=== PATIENT | male | born 1965 | race Caucasian/White ===

== ENCOUNTER 2020-10-04 09:59 | Outpatient (CLI) | payer SELFPAY ==
--- NOTE | 2020-10-04 10:15 | CT_ITS ---
WS: [id number] CT TEMPORAL BONES TECHNIQUE: Noncontrast CT of the temporal bones with coronal and sagittal reformatted images. CLINICAL INFORMATION: CHRONIC OTITIS MEDIA WITH PERFORATED TYMPANIC MEMBRANE COMPARISON: None. DLP: 826.[address] scans at [facility] use at least one of these dose optimization techniques: automat ed exposure control; mA and/or kV adjustment per patient size (includes targeted exams where dose is matched to clinical indication); or iterative reconstruction. FINDINGS: Chronic appearing opacification mastoid air cells bilaterally. Sclerosis in the mastoid bon es bilaterally. Mild chronic appearing mucosal thickening in the middle ear right greater than left w ith thickening of the tympanic membranes right greater than left. Mild mucosal thickening ethmoid air cells. Circumferential mucosal thickening left maxillary sinus. N ormal posterior nasopharynx. RIGHT: Opacification of the right mastoid air cells. Chronic appearing opacification the right middle ear. O therwise normal inner ear structures. Normal scutum. Thickening of the tympanic membrane. Normal external auditory canal. Normal tegmen tympani. Semicircular canals and cochlea are normal in appearance. Normal inner ear structures. Normal vestibular aqueduct. Facial nerve recess is normal. LEFT: Opacification of the left mastoid air cells. Chronic appearing opacification left middle ear. Otherwi se normal inner ear structures. Normal scutum. Thickening of the tympanic membrane. Normal external auditory canal. Normal tegmen tympani. Semicircular canals and cochlea are normal in appearance. Normal inner ear structures. Normal vestibular aqueduct. Facial nerve recess is normal. Visualized intracranial contents and posterior fossa are normal. CT/CT temporal bone wo con* [id number] IMPRESSION: 1. Chronic appearing opacification mastoid air cells bilaterally with chronic erosion of the mastoid septae and bony sclerosis consistent with chronic mastoi ditis. 2. Normal scutum. 3. Chronic appearing mucosal thickening in the middle ear bilaterally right gr eater than left. Thickening of the tympanic membrane. 4. Inner ear structures otherwise appear normal. 5. Moderate mucosal thickening left maxillary sinus.
== END 2020-10-04 10:00 | disposition home or self-care (01) ==
PROVIDERS: Visit Provider Otolaryngology
DX: H66.93 Otitis media, unspecified, bilateral (principal); H72.93 Unspecified perforation of tympanic membrane, bilateral
CPT/HCPCS: 70480

== ENCOUNTER → 2021-06-30 10:02 | Outpatient (BNVA) | payer OTHER, SELFPAY | PROVIDERS: Visit Provider Nurse Practitioner Family | DX: Z20.822 Contact with and (suspected) exposure to COVID-19 (principal) | CPT/HCPCS: 87635 ==

== ENCOUNTER 2021-09-11 14:48 | Emergency (ER) | payer SELFPAY ==
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
--- NOTE | 2021-09-11 14:54 | ECG_ITS ---
[facility] Test Date: 2021-09-11 Pat Name: Steve Heredia Department: Room: Gender: Male Kennel Hand: : 1965 Requested By: Keo Urias Order Number: [id number] Carreno MD: Bessy Adams M.D. Measurements Intervals [place] Rate: 68 P: 65 MA: 154 QRS: 11 QRSD: 98 T: 155 QT: 433 QTc: 462 Interpretive Statements SINUS RHYTHM MARKED T-WAVE ABNORMALITY, CONSIDER ANTEROLATERAL ISCHEMIA [-0.5+ mV T-WAVE IN I/aVL/V3-V6] No previous ECG available for comparison Electronically Signed On 09-12-2021 17:39:37 CDT by Bessy Adams M.D. [id number]
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
[2021-09-11 14:57] VITALS: BP 122/75; PULSE 74; RESP 16; TEMP 36.4; O2SAT 99; BMI 22.3
[2021-09-11 15:09] LABS: Basophils # 0.1 10^3/uL (0.0-0.1); Basophils % 1.3 %; Eosinophils % 0.2 %; Hematocrit 47.1 % (42.0-52.0); Hemoglobin 16.2 g/dL (11.7-16.6); Lymphocytes # 1.5 10^3/uL (0.8-4.8); Lymphocytes % 28.4 %; Mean Corpuscular HGB Conc 34.4 g/dL (30.0-36.0); Mean Corpuscular Hemoglobin 32.7 pg (28.0-34.0); Mean Corpuscular Volume 95.2 fl (80-94); Mean Platelet Volume 11.8 fL (7.4-10.4); Monocytes # 0.5 10^3/uL (0.2-0.9); Monocytes % 10.1 %; Neutrophils # 3.21 10^3/uL (1.8-7.7); Neutrophils % 59.8 %; Nucleated Red Blood Cells % 0 %; Platelet Count 248 10^3/cmm (130-400); Red Blood Count 4.95 10^6/uL (4.1-5.3); Red Cell Distribution Width 13.1 % (12.1-15.1); White Blood Count 5.4 10^3/uL (4.0-10.0)
[2021-09-11] MEDS: aspirin 81 mg Chew Tablet 324 MG PO (15:12)
[2021-09-11] MEDS: tetanus-diphtheria tox (adult) 0.5 mL SDV IM (15:13)
[2021-09-11 15:28] LABS: Troponin(5th) Baseline 9 ng/L (0-15)
[2021-09-11 15:29] LABS: Alanine Aminotransferase 10 U/L (0-41); Albumin Level 4.6 g/dL (3.5-5.2); Alkaline Phosphatase 66 IU/L (40-130); Anion Gap 19.4 (5-19); Aspartate Amino Transferase 14 U/L (0-40); Blood Urea Nitrogen 10 mg/dL (6-20); Carbon Dioxide 19 mmol/L (22-29); Chloride 109 mmol/L (98-107); Globulin 2.8 g/dL (1.3-4.6); Glomerular Filtration Rate 117.1 mL/min (90-130); Glucose 100 mg/dL (65-115); Lipase 37 U/L (13-60); Osmolality Calculated 297 mOsm/kg (285-295); Potassium 3.4 mmol/L (3.5-5.1); Sodium 144 mmol/L (136-145); Total Bilirubin 0.4 mg/dL (0.15-1.2); Total Protein 7.4 g/dL (6.6-8.7)
--- NOTE | 2021-09-11 16:54 | ECG_ITS ---
[facility] Test Date: 2021-09-11 Pat Name: Steve Heredia Department: Room: Gender: Male Manager Hardware: : 1965 Requested By: Keo Urias Order Number: [id number] vE MD: Bessy Adams M.D. Measurements Intervals [place] Rate: 74 P: 73 GA: 152 QRS: 38 QRSD: 96 T: 192 QT: 421 QTc: 468 Interpretive Statements SINUS RHYTHM MODERATE T-WAVE ABNORMALITY, CONSIDER ANTEROLATERAL ISCHEMIA [-0.1+ mV T-WAVE IN V3-V6] MODERATE T-WAVE ABNORMALITY, CONSIDER INFERIOR ISCHEMIA [-0.1+ mV T-WAVE IN II/aVF] Compared to ECG 09/11/2021 15:03:34 No significant changes Electronically Signed On 09-12-2021 17:43:55 CDT by Bessy Adams M.D. [id number]
[2021-09-11 17:19] LABS: Troponin 5 2HR 8.06 ng/L (0-15)
[2021-09-11 17:57] VITALS: O2SAT 95; O2SAT 98
[2021-09-11 18:10] LABS: Troponin 5 2HR Delta -0.94 ABS# (0-10)
== END 2021-09-11 18:08 | disposition home or self-care (01) ==
PROVIDERS: Emergency Provider Emergency Medicine
DX: R07.9 Chest pain, unspecified (principal); S40.812A Abrasion of left upper arm, initial encounter; Y35.93XA Legal intervention, means unspecified, suspect injured, initial encounter; Z23 Encounter for immunization
CPT/HCPCS: 71045; 80053; 83690; 84484; 85025; 90471; 90714; 93005; 99284

== ENCOUNTER 2024-04-12 06:17 | Emergency (ER) | payer MEDICAID, SELFPAY ==
[2024-04-12 06:22] VITALS: BP 114/68; PULSE 87; RESP 24; TEMP 36.2; O2SAT 98; BMI 22.3
--- NOTE | 2024-04-12 06:32 | XRR_ITS ---
PROCEDURE INFORMATION: Exam: XR Lumbosacral Spine Exam date and time: 04/12/2024 6:55 AM Age: 58 years old Clinical indication: Low back pain TECHNIQUE: Imaging protocol: Radiologic exam of the lumbosacral spine. Views: 2 or 3 views. COMPARISON: No relevant prior studies available. FINDINGS: Limitations: Lateral views degraded by artifact, motion, unsharpness. Bones/joints: Curvature/rotation lumbar spine. Evidence of compression fracture superior endplate with [id number] partial loss of vertebral body height L1 vertebral body, of uncertain age. No additional new appearing displaced fracture nor dislocation seen. Relatively narrow disc space L5-S1, nonspecific. Hypertrophic endplate changes. Degenerative changes facets. Arthritic changes hips. Soft tissues: Unremarkable. Vasculature: Pelvic phleboliths. XR/XR lumbar spine 2-3V* [id number] IMPRESSION: 1. Compression fracture L1 vertebral body, of uncertain age. 2. Degenerative changes.
--- NOTE | 2024-04-12 06:33 | ED_ITS ---
HPI - Back Pain/Injury General: Chief Complaint: Back Pain/Injury Stated Complaint: low back pain Time Seen by Provider: 04/12/24 06:19 Source: patient Mode of arrival: ambulatory Limitations: no limitations History of Present Illness: 58-year-old male has a history of chroni c low back pain states has had low back pain for years. States that pain in his low back is worse with movement and touch. States if he bends down or bends over the pain is much worse as well. He denies any acute injuries denies any acute worsening of his pain. He denies any bowel or bladder incontinence Associated symptoms: Deny abdominal pain, chills, fever(s), nausea or vomiting Related Data Previous Rx's Medication Instructions Recorded methocarbamol 750 mg tablet 750 mg PO Q6H PRN spasms #20 tabs 04/12/24 naproxen 500 mg tablet (Naprosyn) 500 mg PO BID PRN pain #20 tabs 04/12/24 Allergies Allergy/AdvReac Type Severity Reaction Status Date / Time No Known Allergies Allergy Verified 04/12/24 06:22 Review of Systems Const: Denies: fever(s), chills, body aches or change in appetite ENMT: Denies: throat pain or dental pain Card: Denies: chest pain Resp: Denies: dyspnea GI: Denies: abdominal pain, nausea, vomiting or diarrhea Musc: Reports: back pain; Denies: neck pain Skin/Breast: Denies: rash Neuro: Denies: headache(s) PFSH ED PFSH: Family History Mother Diabetes Social History Alcohol intake: current Alcohol intake frequency: 3 or more drinks per day Alcohol type: beer Physical Exam Const: COMMON NORMALS: no acute distress, patient oriented x3 and healthy appearing HENMT: COMMON NORMALS: normocephalic and atraumatic HEAD & SCALP: normocephalic and atraumatic Neck/C-Spine: COMMON NORMALS: full ROM and supple Chest: COMMONS NORMALS: normal inspection of the chest Resp: COMMON NORMALS: normal respiratory effort Cardio: COMMON NORMALS: regular rate RATE: regular rate Back/Pelvis: OTHER: Paraspinal tenderness to low back no saddle anesthesia Extremity: COMMON NORMALS: normal to inspection and full ROM Neuro: COMMON NORMALS: patient oriented x3, moves all extremities and no focal motor deficits Psych: COMMON NORMALS: mental status grossly normal, Normal thought process present and cooperative THOUGHT PROCESS: Normal thought process present Skin: COMMON NORMALS: no rashes or lesions noted and no wounds GENERAL SKIN EXAM: no rashes or lesions noted Course Vital Signs: Vital signs: Vital Signs Temperature 97.1 F L 04/12/24 06:22 Pulse Rate 87 04/12/24 06:22 Respiratory Rate 24 H 04/12/24 06:22 Blood Pressure 114/68 04/12/24 06:22 Pulse Oximetry 98 04/12/24 06:22 MDM - Back Pain/Injury Medical Decision Making Patient presents with low back pain he has no signs of epidural abscess or cord compression. Will place him on Naprosyn Robaxin he stable for discharge follow- up with PCP return if worsening. Medical Records I reviewed the patient's medical records. XR interpretation done by ED provider, pending radiology final review ED provider radiology interpretation(s): X-ray lumbar spine no acute abnormality Discharge Plan Discharge Patient Disposition: Home Clinical Impression: Chronic low back pain Condition: Stable Prescriptions: New methocarbamol 750 mg tablet 750 mg PO Q6H PRN (Reason: spasms) Qty: 20 0RF naproxen [Naprosyn] 500 mg tablet 500 mg PO BID PRN (Reason: pain) Qty: 20 0RF Discharge Orders: Discharge ED (Routine); Ordered 04/12/24 Ordered By: Lillian Winter Discharge Diet: Advance as tolerated Discharge Activity: Resume usual activity Patient Instructions: Chronic Back Pain (DC) Coding Level of Care Code ED Chemical Engineer for Wilson Bowles
[2024-04-12] MEDS: methocarbamol 750 mg Tablet 1500 MG PO (06:38)
[2024-04-12] MEDS: ketorolac 60 mg/2 mL INJ IM (06:40)
[2024-04-12] MEDS: dexamethasone 10 mg/mL INJ IM (06:40)
--- NOTE | 2024-04-14 07:36 | DCPLANNER ---
messaged ortho for er f/u
== END 2024-04-12 07:30 | disposition home or self-care (01) ==
PROVIDERS: Emergency Provider Emergency Medicine
DX: M54.50 Low back pain, unspecified (principal)
CPT/HCPCS: 72100; 96372; 99284; J1100; J1885

== ENCOUNTER → 2024-04-22 07:58 | Outpatient (BNVA) | payer MEDICAID, SELFPAY | PROVIDERS: Visit Provider Orthopaedic Surgery | DX: M54.50 Low back pain, unspecified (principal); G89.29 Other chronic pain; M48.062 Spinal stenosis, lumbar region with neurogenic claudication | CPT/HCPCS: 72110 ==

== ENCOUNTER 2024-05-28 15:09 | Outpatient (RCR) | payer OTHER, MEDICAID, SELFPAY | END 2024-05-30 23:59 | disposition home or self-care (01) | LOC: SPT 15:09 | PROVIDERS: Visit Provider Orthopaedic Surgery | DX: M54.50 Low back pain, unspecified (principal); G89.29 Other chronic pain | CPT/HCPCS: 97161 ==

== ENCOUNTER 2024-05-31 06:30 | Outpatient (RCR) | payer OTHER, MEDICAID, SELFPAY | END 2024-06-27 23:59 | disposition home or self-care (01) | LOC: SPT 06:30 | PROVIDERS: Visit Provider Orthopaedic Surgery | DX: M54.50 Low back pain, unspecified (principal); G89.29 Other chronic pain | CPT/HCPCS: 97110 ==

== ENCOUNTER 2024-10-31 19:21 | Emergency (ER) | payer MEDICAID, SELFPAY ==
[2024-10-31 19:45] VITALS: BP 111/69; PULSE 77; RESP 14; TEMP 36.6; O2SAT 97
[2024-10-31 20:50] VITALS: BP 95/48; PULSE 76; O2SAT 95
[2024-10-31] MEDS: HYDROcodone-acetaminophen 5-325 mg Tablet 1 TAB PO (21:20)
[2024-10-31] MEDS: orphenadrine 30 mg/mL Inj 2 mL 60 MG IM (21:22)
--- NOTE | 2024-10-31 21:36 | W.ED.BACK ---
HPI - Back Pain/Injury General: Chief Complaint: Back Pain/Injury Stated Complaint: Back pain fall Time Seen by Provider: 10/31/24 21:05 History of Present Illness: Patient with chronic low back pain. Has seen neurosurgery for in the past. Has done rehab in [facility] to get an MRI scheduled through his insurance. He states that he was just walking today and he felt his low back started to hurt and gave out on him so he went to the ground. He did not fall or have any injury from this. He states that this pain is in the low back and across the left lower side. He denies any bowel or bladder changes. Denies any radicular pain. Related Data Previous Rx's ?Medication ?Instructions ?Recorded methocarbamol 750 mg tablet 750 mg PO Q6H PRN spasms #20 tabs 04/12/24 naproxen 500 mg tablet (Naprosyn) 500 mg PO BID PRN pain #20 tabs 04/12/24 prednisone 20 mg tablet 20 mg PO DAILY #15 tabs 05/15/24 cyclobenzaprine 10 mg tablet 10 mg PO TID #20 tabs 10/31/24 hydrocodone 5 mg-acetaminophen 325 1 tab PO Q6H #20 tabs 10/31/24 mg tablet Allergies Allergy/AdvReac Type Severity Reaction Status Date / Time No Known Allergies Allergy Verified 04/12/24 06:22 [facility] ED PFSH: Family History Mother Diabetes Social History Smoking and tobacco/nicotine status: current every day tobacco/nicotine user cigarettes Packs smoked per day: 1 Years cigarettes smoked: 35 Alcohol intake: current Alcohol intake frequency: 3 or more drinks per day Alcohol type: beer Physical Exam Const: COMMON NORMALS: patient oriented x3 Neck/C-Spine: COMMON NORMALS: no JVD Resp: COMMON NORMALS: normal respiratory effort, No retractions, No use of accessory muscles, clear to auscultation bilaterally and percussion normal AUSCULTATION: clear to auscultation bilaterally PERCUSSION: percussion normal Cardio: COMMON NORMALS: no JVD, regular rate, regular rhythm, S1 normal heart sound present, S2 normal heart sound present, No gallops present (Cardio), No clicks present (Cardio), No murmurs present (Cardio), No rub (Cardio) and Peripheral pulses 2+ throughout RATE: regular rate RHYTHM: regular rhythm HEART SOUNDS: S1 normal heart sound present and S2 normal heart sound present PERIPHERAL PULSES: Peripheral pulses 2+ throughout GI: COMMON NORMALS: Normal to inspection, nondistended, normoactive bowel sounds present, Soft to palpation, non-tender, No hepatosplenomegaly present, no masses and no bruits PALPATION: Yes Soft to palpation and Yes No hepatosplenomegaly present Back/Pelvis: OTHER: Diffuse low back pain, negative straight leg raise bilaterally Neuro: COMMON NORMALS: patient oriented x3, moves all extremities, no focal motor deficits, no sensory deficits noted and deep tendon reflexes 2+ bilaterally Course Vital Signs: Vital signs: Vital Signs Temperature 98 F 10/31/24 19:45 Pulse Rate 76 10/31/24 20:50 Respiratory Rate 14 10/31/24 19:45 Blood Pressure 95/48 10/31/24 20:50 Pulse Oximetry 95 10/31/24 20:50 Oxygen Delivery Me thod Room Air 10/31/24 20:50 MDM - Back Pain/Injury Medical Decision Making Patient with acute on chronic low back pain. No new injury. No radicular pain. No bowel or bladder changes. No saddle paresthesias. No evidence of spinal stenosis. No fever or history of IV drug use or recent lower back instrumentation. No evidence of infection. Patient given Toradol and Norflex and [place] here and will discharge home with [place] and Flexeril. Discussed with patient to follow back up with his neurosurgeon and continue trying to get further imaging as needed like an MRI. I do not see an indication for emergent MRI at this time. No radiology studies performed this visit Discharge Plan Discharge Patient Disposition: Home Clinical Impression: Chronic back pain Condition: Stable Prescriptions: New cyclobenzaprine 10 mg tablet 10 mg PO TID Qty: 20 0RF hydrocodone-acetaminophen 5-325 mg tablet 1 tab PO Q6H Qty: 20 0RF No Action prednisone 20 mg tablet 20 mg PO DAILY Qty: 15 0RF Rx Instructions: 60mg for three days, 40mg for two days, 20mg for two days methocarbamol 750 mg tablet 750 mg PO Q6H PRN (Reason: spasms) Qty: 20 0RF naproxen [Naprosyn] 500 mg tablet 500 mg PO BID PRN (Reason: pain) Qty: 20 0RF Discharge Orders: Discharge ED (Routine); Ordered 10/31/24 Ordered By: Baudilio Velasquez Discharge Diet: Advance as tolerated Patient Instructions: Opioid Safety, Pain Management, Patient Portal & [place] Instructions Print Language: Zambian Coding Level of Care Code ED Tablet Making Machine Operator for Wilson Bowles
[2024-10-31 21:38] VITALS: BP 124/79; PULSE 82; O2SAT 96
== END 2024-10-31 21:39 | disposition home or self-care (01) ==
PROVIDERS: Emergency Provider Emergency Medicine
DX: M54.89 Other dorsalgia (principal); F17.210 Nicotine dependence, cigarettes, uncomplicated
CPT/HCPCS: 96372; 99284; J1885; J2360; J9999